=== PATIENT | male | born 1955 | race Caucasian/White ===

== ENCOUNTER 2018-12-15 18:00 | Inpatient (IN) | payer OTHER ==
[~2018-12-15] VITALS: Ht 152.4 cm; Wt 52.2 kg
--- NOTE | 2018-12-15 18:07 | NUR ---
NOTIFIED NURSING SLUBBER MACHINE OPERATOR, RICKIE, OF PT'S 5150 STATUS. NO 1:1 SITTER AVAILABLE. INSTRUCTED TO NOTIFY HOSPITAL SECURITY.
--- NOTE | 2018-12-15 18:10 | NUR ---
HOSPITAL SIDEWALK REPAIRER AT BEDSIDE FOR SAFETY PRECAUTION; 1:1 SITTER.
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
--- NOTE | 2018-12-15 18:43 | NUR ---
ADMITTING REPORT GIVEN TO PARMINDER WALTER. PT WILL BE ADMITTED TO [facility] ROOM 139A, UNDER CARE OF DR. JONES/DAVID.
[2018-12-15] MEDS ORDERED: ESCI20TA PO (18:52)
[2018-12-15 20:00] VITALS: BP 130/58
[2018-12-15] MEDS ORDERED: MAG HYDROX/AL HYDROX/SIMETH 30 ML LIQUID UDC PO PRN (20:30)
[2018-12-15] MEDS ORDERED: MAGNESIUM HYDROXIDE 30 ML LIQUID UDC PO PRN (20:30)
[2018-12-15] MEDS ORDERED: TEMAZEPAM 7.5 MG CAPSULE PO PRN ×2 (20:30→20:45)
[2018-12-15] MEDS ORDERED: ACETAMINOPHEN 325 MG TABLET PO PRN (20:30)
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
[2018-12-15] MEDS: CLONAZEPAM 0.5 MG TABLET PO PRN (21:09)
[2018-12-15] MEDS: TEMAZEPAM 15 MG CAPSULE PO PRN (21:10)
[2018-12-16 07:30] VITALS: BP 111/78
[2018-12-16] MEDS: NICOTINE 14 MG/24HR PATCH TD SCH (08:42)
[2018-12-16] MEDS ORDERED: INFLUENZA VACCINE 2018-2019 0.5 ML DISP.SYRIN IM ONE (09:00)
[2018-12-16 16:00] VITALS: BP 105/62
[2018-12-16 20:31] VITALS: BP 121/70
[2018-12-16] MEDS: CLONAZEPAM 0.5 MG TABLET PO PRN (23:30)
[2018-12-16] MEDS: TEMAZEPAM 15 MG CAPSULE PO PRN (23:30)
[2018-12-17 07:30] VITALS: BP 108/69
[2018-12-17] MEDS: NICOTINE 14 MG/24HR PATCH TD SCH (08:12)
--- NOTE | 2018-12-17 10:15 | NUR ---
UR NOTE: salvage worker faxed clinical information to keycase assembler, JAH [phone: ; fax; ], at [facility]. salvage worker received successful fax return and placed a copy in patient chart. salvage worker will await further authorization
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
[2018-12-17] MEDS ORDERED: DIVALPROEX 250 MG TABLET.DR PO SCH (13:45)
[2018-12-17] MEDS: risperiDONE 0.5 MG TABLET PO SCH ×2 (13:45→20:24)
[2018-12-17 14:21] LABS: BASOPHILS # (AUTO) 0.1 K/uL (0.0-8.0); EOSINOPHILS # (AUTO) 0.3 K/uL (0.0-0.7); EOSINOPHILS % (AUTO) 2.7 % (0.0-7.0); HEMATOCRIT 41.4 % (36.7-47.1); HEMOGLOBIN 13.8 g/dL (12.5-16.3); LYMPHOCYTES # (AUTO) 1.4 K/uL (20.0-40.0); MEAN CORPUSCULAR HGB CONC 33 g/dL (32.5-36.3); MEAN CORPUSCULAR VOLUME 92.9 fL (73.0-96.2); MONOCYTES # (AUTO) 0.8 K/uL (2.0-10.0); MONOCYTES % (AUTO) 6.6 % (0.0-11.0); NEUTROPHILS # (AUTO) 8.8 K/uL (1.8-8.9); NEUTROPHILS % (AUTO) 77.7 % (38.5-71.5); PLATELET COUNT (AUTO) 497 K/uL (152-348); RED BLOOD CELL COUNT(AUTO) 4.46 MIL/uL (4.06-5.63); WHITE BLOOD COUNT (AUTO) 11.4 K/uL (3.6-10.2)
[2018-12-17 14:33] LABS: CREATININE 0.9 mg/dL (0.6-1.3); POTASSIUM 4.2 mmol/L (3.5-5.1)
--- NOTE | 2018-12-17 15:05 | NUR ---
Initial Discharge Note: Patient is a 63 year old male who currently lives in a home [[address] [place] [address]] and has one roommate. Patient would like to return to home when ready for discharge. Patient pharmacy benefits coordinator/finance manger, Salma Jaramillo [ / ], states she will be able to provide transportation when patient is ready for discharge. pass worker will continue to collaborate with patient, MD, and social support on a safe and proper discharge.
[2018-12-17 16:00] VITALS: BP 115/62
[2018-12-17] MEDS: LITHIUM CARBONATE 300 MG CAPSULE PO SCH ×2 (17:36→20:23)
[2018-12-17] MEDS: ESCITALOPRAM OXALATE 10 MG TABLET PO SCH (17:37)
[2018-12-17] MEDS: QUETIAPINE FUMARATE 200 MG TABLET PO SCH (20:24)
[2018-12-17 21:11] VITALS: BP 111/73
--- NOTE | 2018-12-18 04:32 | NUR ---
PT. SLEPT WELL ALL NIGHT APPROX 7-8 HRS. COOPERATIVE & COMPLIANCE TO PT. CARE. TAKING MEDICATIONS ORDERED. AMBULATING WELL, STAYED MOST OF HIS TIME AT THE RECREATION ROOM. PT IS ALERT & ORIENTED X3. WATCHED CLOSELY. NO UNUSUAL BEHAVIOR NOTED.
[2018-12-18 07:30] VITALS: BP 99/59
[2018-12-18] MEDS: NICOTINE 14 MG/24HR PATCH TD SCH (08:41)
[2018-12-18] MEDS: LITHIUM CARBONATE 300 MG CAPSULE PO SCH ×2 (08:41→20:10)
[2018-12-18] MEDS: ESCITALOPRAM OXALATE 10 MG TABLET PO SCH (08:41)
[2018-12-18] MEDS: risperiDONE 0.5 MG TABLET PO SCH ×2 (08:41→20:11)
[2018-12-18 16:00] VITALS: BP 104/59
--- NOTE | 2018-12-18 16:09 | NUR ---
UR NOTE: back shoe worker faxed clinical information to piano case maker, JAH [phone: ; fax; ], at [facility]. back shoe worker received successful fax return and placed a copy in patient chart. back shoe worker will await further authorization.
[2018-12-18 20:00] VITALS: BP 108/69
[2018-12-18] MEDS: QUETIAPINE FUMARATE 200 MG TABLET PO SCH (20:12)
[2018-12-19 07:30] VITALS: BP 99/60
[2018-12-19] MEDS: LITHIUM CARBONATE 300 MG CAPSULE PO SCH ×2 (09:05→20:21)
[2018-12-19] MEDS: risperiDONE 0.5 MG TABLET PO SCH ×2 (09:05→20:23)
[2018-12-19] MEDS: NICOTINE 14 MG/24HR PATCH TD SCH (09:05)
[2018-12-19] MEDS: ESCITALOPRAM OXALATE 10 MG TABLET PO SCH (09:05)
[2018-12-19 17:32] VITALS: BP 123/71
[2018-12-19 20:04] VITALS: BP 134/77
[2018-12-19] MEDS: QUETIAPINE FUMARATE 200 MG TABLET PO SCH (20:33)
--- NOTE | 2018-12-19 21:00 | NUR ---
RECEIVED PATIENT WALKING UP AND DOWN THE HALLWAY. AFTER A WHILE HE WENT TO THE ACTIVITY ROOM INTERACTING WITH PEERS AND WATCHING TV.DENIES ALL FORMS OF HALLUCINATION.HE IS COOPERATIVE WITH STAFF FOR HIS CARE AND COMPLIANT WITH HIS MEDS.WILL CONTINUE TO MONITOR CLOSELY.
--- NOTE | 2018-12-20 06:47 | NUR ---
Slept intermittently for approx.7hrs.
[2018-12-20 07:30] VITALS: BP 133/76
[2018-12-20] MEDS: risperiDONE 0.5 MG TABLET PO SCH ×2 (08:23→20:04)
[2018-12-20] MEDS: ESCITALOPRAM OXALATE 10 MG TABLET PO SCH (08:23)
[2018-12-20] MEDS: NICOTINE 14 MG/24HR PATCH TD SCH (08:23)
[2018-12-20] MEDS: LITHIUM CARBONATE 300 MG CAPSULE PO SCH ×2 (08:23→20:03)
[2018-12-20] MEDS: AZITHROMYCIN 250 MG TABLET PO SCH (16:14)
[2018-12-20 17:01] VITALS: BP 115/73
[2018-12-20] MEDS: QUETIAPINE FUMARATE 200 MG TABLET PO SCH (20:05)
--- NOTE | 2018-12-20 20:25 | NUR ---
RECEIVED PATIENT IN ACTIVITY ROOM ENGAGING WITH HIS PEERS AND WATCHING T.V. NO PAIN OR DISCOMFORT EXPRESSED. DENIES ALL FORMS OF HALLUCINATIONS OR SUICIDAL TENDENCIES. COOPERATIVE WITH STAFF FOR HIS CARE AND COMPLIANT WITH HIS MEDS. WILL CONTINUE TO MONITOR CLOSELY.
[2018-12-20 21:13] VITALS: BP 117/66
--- NOTE | 2018-12-21 06:24 | NUR ---
SLEPT FOR APPROX.7HRS.
[2018-12-21 07:30] VITALS: BP 94/55
[2018-12-21 07:30] LABS: CREATININE 0.9 mg/dL (0.6-1.3); PHOSPHOROUS 3.9 mg/dL (2.5-4.9)
[2018-12-21 07:35] LABS: BASOPHILS # (AUTO) 0.2 K/uL (0.0-8.0); BASOPHILS % (AUTO) 2.1 % (0.0-2.0); EOSINOPHILS # (AUTO) 0.4 K/uL (0.0-0.7)
[2018-12-21 07:43] LABS: EOSINOPHILS % (AUTO) 5.2 % (0.0-7.0); HEMOGLOBIN 13.4 g/dL (12.5-16.3); LYMPHOCYTES # (AUTO) 1.3 K/uL (20.0-40.0); LYMPHOCYTES % (AUTO) 17.8 % (20.5-51.5); MEAN CORPUSCULAR HEMOGLOBIN 31.1 uug (23.8-33.4); MEAN CORPUSCULAR HGB CONC 33 g/dL (32.5-36.3); MEAN CORPUSCULAR VOLUME 92.9 fL (73.0-96.2); MONOCYTES # (AUTO) 0.6 K/uL (2.0-10.0); MONOCYTES % (AUTO) 8.2 % (0.0-11.0); NEUTROPHILS % (AUTO) 66.7 % (38.5-71.5); PLATELET COUNT (AUTO) 374 K/uL (152-348); WHITE BLOOD COUNT (AUTO) 7.5 K/uL (3.6-10.2)
[2018-12-21] MEDS: LITHIUM CARBONATE 300 MG CAPSULE PO SCH ×2 (08:15→20:03)
[2018-12-21] MEDS: NICOTINE 14 MG/24HR PATCH TD SCH (08:15)
[2018-12-21] MEDS: risperiDONE 0.5 MG TABLET PO SCH (08:15)
[2018-12-21] MEDS: ESCITALOPRAM OXALATE 10 MG TABLET PO SCH (08:16)
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
--- NOTE | 2018-12-21 12:52 | NUR ---
UR NOTE: onyx chip terrazzo worker faxed clinical information to disability case manager, JAH [phone: ; fax; ], at [facility]. onyx chip terrazzo worker received successful fax return and placed a copy in patient chart. onyx chip terrazzo worker will await further authorization.
--- NOTE | 2018-12-21 12:55 | NUR ---
Discharge planning: rotary shear worker helper attempted to call and speak with Salmailya Jaramillo [[phone]], patient supervisor fiberglass boat assembly, however there was no answer. rotary shear worker helper left and voicemail and is awaiting call back to discuss discharge planning and patient prognosis.
[2018-12-21] MEDS: AZITHROMYCIN 250 MG TABLET PO SCH (15:31)
[2018-12-21 16:44] VITALS: BP 108/70
--- NOTE | 2018-12-21 19:30 | NUR ---
Received patient on the TV room. AAOx3. In no acute distress. Calm, pleasant and cooperative. Denies any pain or SOB. Denies any SI, hallucinations or delusions. No anxiety noted. Continue to monitor.
[2018-12-21] MEDS: QUETIAPINE FUMARATE 200 MG TABLET PO SCH (20:03)
[2018-12-21] MEDS: risperiDONE 1 MG TABLET PO SCH (20:03)
[2018-12-21 20:31] VITALS: BP 113/76
[2018-12-21] MEDS ORDERED: risperiDONE 0.5 MG TABLET PO SCH (21:00)
--- NOTE | 2018-12-22 06:10 | NUR ---
SLEPT FOR APPROX.6 1/2 HRS.
[2018-12-22 07:30] VITALS: BP 99/67
[2018-12-22] MEDS: risperiDONE 1 MG TABLET PO SCH ×2 (08:27→20:04)
[2018-12-22] MEDS: NICOTINE 14 MG/24HR PATCH TD SCH (08:27)
[2018-12-22] MEDS: ESCITALOPRAM OXALATE 10 MG TABLET PO SCH (08:27)
[2018-12-22] MEDS: LITHIUM CARBONATE 300 MG CAPSULE PO SCH ×2 (08:27→20:04)
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
[2018-12-22] MEDS: LITHIUM CARBONATE 150 MG CAPSULE PO SCH (12:29)
[2018-12-22] MEDS: AZITHROMYCIN 250 MG TABLET PO SCH (13:18)
--- NOTE | 2018-12-22 14:19 | NUR ---
UR NOTE: handy worker faxed clinical information to manager rn case, JAH [phone: ; fax; ], at [facility]. handy worker received successful fax return and placed a copy in patient chart. handy worker will await further authorization. handy worker also received voicemail from JAH stating that patient has been authorized for a Partial Hospitalization Program (PHP) at [facility]. handy worker to follow-up on PHP and and send referral packet to facility.
--- NOTE | 2018-12-22 15:17 | NUR ---
Discharge planning: Per [facility] authorization, social science teacher faxed referral packet to [facility] [ph: ; fax; ] for patient to receive partial hospitalization program upon discharge. cabinet worker spoke with home health outreach coordinatorMickie. cabinet worker awaiting confirmation of acceptance of patient to program.
[2018-12-22 15:57] VITALS: BP 111/66
[2018-12-22] MEDS: QUETIAPINE FUMARATE 200 MG TABLET PO SCH (20:04)
[2018-12-22 20:25] VITALS: BP 120/71
--- NOTE | 2018-12-23 06:21 | NUR ---
Patient slept through out the night. Patient is compliant with all medical care and medication administration. Patient remains pleasant upon approach. Patient denies any pain/discomfort/SI/HI at this time. Patient is cooperative and shows no aggression to other patients and medical staff. Patient is able to verbalize needs and needs have been met.
[2018-12-23 07:30] VITALS: BP 110/67
[2018-12-23] MEDS: ESCITALOPRAM OXALATE 10 MG TABLET PO SCH (09:04)
[2018-12-23] MEDS: LITHIUM CARBONATE 300 MG CAPSULE PO SCH ×2 (09:04→20:31)
[2018-12-23] MEDS: NICOTINE 14 MG/24HR PATCH TD SCH (09:04)
[2018-12-23] MEDS: risperiDONE 1 MG TABLET PO SCH ×2 (09:04→20:31)
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
[2018-12-23] MEDS: AZITHROMYCIN 250 MG TABLET PO SCH (13:56)
[2018-12-23] MEDS: LITHIUM CARBONATE 150 MG CAPSULE PO SCH (13:57)
--- NOTE | 2018-12-23 14:12 | NUR ---
Process Group: Patients were asked to reflect and respond to the question "If you could change one things about yourself, what would it be and why?" Subjective: "I wish I had a better body that what I am" Objective: Patient was eager to join group and stayed in group for entirety of session. Patient appeared with euthymic mood and congruent affect. Patient observed engaging with group members in an insightful manner. Assessment: Patient needed some redirection and reminders to not interrupt other peers who were speaking. Plan: Encourage group attendance as scheduled. production utility worker will help patient be self aware during group and mindful of group rules.
--- NOTE | 2018-12-23 14:56 | NUR ---
UR NOTE: parks and recreation worker faxed clinical information to major case detective, JAH [phone: ; fax; ], at [facility]. parks and recreation worker received successful fax return and placed a copy in patient chart. parks and recreation worker will await further authorization.
[2018-12-23 16:00] VITALS: BP 122/68
[2018-12-23 20:17] VITALS: BP 110/67
[2018-12-23] MEDS: QUETIAPINE FUMARATE 200 MG TABLET PO SCH (20:31)
[2018-12-24 07:30] VITALS: BP 108/65
[2018-12-24] MEDS: NICOTINE 14 MG/24HR PATCH TD SCH (08:05)
[2018-12-24] MEDS: ESCITALOPRAM OXALATE 10 MG TABLET PO SCH (08:05)
[2018-12-24] MEDS: LITHIUM CARBONATE 300 MG CAPSULE PO SCH (08:05)
[2018-12-24] MEDS: risperiDONE 1 MG TABLET PO SCH ×2 (08:05→20:07)
[2018-12-24] MEDS: LITHIUM CARBONATE 150 MG CAPSULE PO SCH (13:19)
[2018-12-24] MEDS: AZITHROMYCIN 250 MG TABLET PO SCH (13:53)
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
[2018-12-24 16:00] VITALS: BP 115/68
--- NOTE | 2018-12-24 16:21 | NUR ---
UR NOTE: parks worker faxed clinical information to case fitter, JAH [phone: ; fax; ], at [facility]. parks worker received successful fax return and placed a copy in patient chart. parks worker informed JAH that patient is scheduled to discharge tomorrow, December 24, 2018.
[2018-12-24 20:00] VITALS: BP 117/75
[2018-12-24] MEDS: QUETIAPINE FUMARATE 200 MG TABLET PO SCH (20:07)
[2018-12-25 07:21] LABS: BILIRUBIN,TOTAL 0.4 mg/dL (0.2-1.0); CREATININE 0.8 mg/dL (0.6-1.3); POTASSIUM 4.4 mmol/L (3.5-5.1); TOTAL PROTEIN, SERUM 6.2 g/dL (6.4-8.2)
[2018-12-25 07:30] VITALS: BP 110/64
[2018-12-25 07:47] LABS: BASOPHILS # (AUTO) 0.1 K/uL (0.0-8.0); BASOPHILS % (AUTO) 1.5 % (0.0-2.0); EOSINOPHILS # (AUTO) 0.4 K/uL (0.0-0.7); EOSINOPHILS % (AUTO) 6.1 % (0.0-7.0); HEMATOCRIT 40.5 % (36.7-47.1); HEMOGLOBIN 13.6 g/dL (12.5-16.3); LYMPHOCYTES # (AUTO) 1.1 K/uL (20.0-40.0); LYMPHOCYTES % (AUTO) 17.9 % (20.5-51.5); MEAN CORPUSCULAR HEMOGLOBIN 31.4 uug (23.8-33.4); MEAN CORPUSCULAR HGB CONC 34 g/dL (32.5-36.3); MEAN CORPUSCULAR VOLUME 93.5 fL (73.0-96.2); MONOCYTES # (AUTO) 0.7 K/uL (2.0-10.0); MONOCYTES % (AUTO) 10.8 % (0.0-11.0); NEUTROPHILS % (AUTO) 63.7 % (38.5-71.5); PLATELET COUNT (AUTO) 298 K/uL (152-348); RED BLOOD CELL COUNT(AUTO) 4.33 MIL/uL (4.06-5.63); WHITE BLOOD COUNT (AUTO) 6.2 K/uL (3.6-10.2)
[2018-12-25] MEDS ORDERED: LITHIUM CARBONATE 300 MG CAPSULE PO SCH (09:00)
[2018-12-25] MEDS ORDERED: LITHIUM CARBONATE 150 MG CAPSULE PO SCH (09:00)
[2018-12-25] MEDS: risperiDONE 1 MG TABLET PO SCH ×2 (09:09→20:27)
[2018-12-25] MEDS: ESCITALOPRAM OXALATE 10 MG TABLET PO SCH (09:09)
[2018-12-25] MEDS: NICOTINE 14 MG/24HR PATCH TD SCH (09:09)
--- NOTE | 2018-12-25 15:03 | NUR ---
UR NOTE: leadite worker faxed clinical information to telephonic nurse case manager, JAH [phone: ; fax; ], at [facility]. leadite worker received successful fax return and placed a copy in patient chart. leadite worker provided JAH with updated discharge date of tomorrow, December 26, 2018.
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
[2018-12-25 16:00] VITALS: BP 116/66
--- NOTE | 2018-12-25 16:02 | NUR ---
FRIDAY DC NOTE: Patient will be discharged back to his home on Wednesday, December 26, 2018 [[address] [place] [address], [place] [address]] where he lives with his roommate, Min. Transportation will be provided by patient friend, Salma [[phone]], at 3:00pm. Patient is alert and oriented x4, denies any SI/HI, and is able to plan for self-care. Patient was briefed on discharge and aware and agreeable with plan. Patient will follow-up with primary care physician, Dr. Mcnair [[address], [place] [address]; ] on Saturday, January 19, 2019 at 2:20pm. school social worker has faxed continuing care packet. Patient [facility] telephonic nurse case manager, AJH, is working on scheduling a psychiatry follow-up and will contact school social worker when it has been arranged. Additionally patient has been scheduled for a partial hospitalization program on Friday, December 28, 2018 at 8:00am at [facility] [[address], [address], [place] [address]; ]. school social worker has also provided patient with outpatient mental health resources including [facility] [[address], [place] [address]; ], [facility] [ ], and National Suicide Prevention Lifeline [ ].
[2018-12-25] MEDS: LITHIUM CARBONATE 150 MG CAPSULE PO SCH (17:53)
--- NOTE | 2018-12-25 20:00 | NUR ---
RECEIVED PATIENT IN THE DAY ROOM. HE IS NOTED A/O X 3. CALM AND PLEASANT UPON APPROACHED. ABLE TO AMBULATE WITH STEADY GAIT AND ABLE TO MAKE HIS NEEDS KNOWN. PATIENT AWARE OF IS INCOMING DISCHARGE TOMORROW. FAIR INSIGHT AND JUDGMENT IS NOTED. V/S STABLE. PT IS ENCOURAGE TO VERBALIZED FEELINGS, SAFETY EMPHASIS. WILL CONTINUE TO MONITOR.
[2018-12-25 20:23] VITALS: BP 127/79
[2018-12-25] MEDS: QUETIAPINE FUMARATE 200 MG TABLET PO SCH (20:28)
[2018-12-26 07:30] VITALS: BP 106/63
[2018-12-26] MEDS: NICOTINE 14 MG/24HR PATCH TD SCH (09:14)
[2018-12-26] MEDS: ESCITALOPRAM OXALATE 10 MG TABLET PO SCH (09:14)
[2018-12-26] MEDS: risperiDONE 1 MG TABLET PO SCH (09:14)
[2018-12-26] MEDS ORDERED: INFLUENZA VACCINE 2018-2019 0.5 ML DISP.SYRIN IM ONE (09:15)
[2018-12-26] MEDS: LITHIUM CARBONATE 150 MG CAPSULE PO SCH (09:15)
--- NOTE | 2018-12-26 14:15 | NUR ---
PT IS BEING DISCHARGED HOME. PT IS PICKED UP BY HIS FRIEND EDIN. VS ARE STABLE, NO DISTRESS. DISCHARGE INSTRUCTIONS ARE GIVEN, PT IS VERBALIZES UNDERSTANDING, INCLUDING THE NEED TO KEEP HIS APPOINTMENTS. ALL BELONGING
== END 2018-12-26 14:15 | disposition home or self-care (01) | DRG 885 ==
LOC: ER 18:04 → GPS 18:45
PROVIDERS: ADMIT Psychiatry & Neurology Psychiatry; ATTEND Nurse Practitioner Acute Care
DX: F31.64 Bipolar disorder, current episode mixed, severe, with psychotic features (principal); J44.1 Chronic obstructive pulmonary disease with (acute) exacerbation; E87.1 Hypo-osmolality and hyponatremia; I45.10 Unspecified right bundle-branch block; F17.200 Nicotine dependence, unspecified, uncomplicated; Z79.899 Other long term (current) drug therapy; D72.829 Elevated white blood cell count, unspecified
CPT/HCPCS: 36415; 70030-TC; 83735; 84100; 85025; 90686; 93005; A4663; Q0144